=== PATIENT | male | born 1960 | race Caucasian/White ===

== ENCOUNTER 2018-05-11 02:00 | Day surgery (SDC) | payer BC ==
[~2018-05-11] VITALS: Ht 182.9 cm; Wt 79.8 kg
[~2018-05-11 02:00] MED LIST: ALB6.7R INH; CEPH500C24 PO; IBUP-56 PO; PRED-1 PO; SULF-198 PO
[2018-05-11] MEDS ORDERED: PROPOFOL EMUL(*) 10MG/ML 20 ML 40 ML ONE (07:20)
[2018-05-11 08:08] VITALS: BP 123/87
[2018-05-11] MEDS ORDERED: NORMOSOL R SOLN(*) 1000 ML BAG 1,000 ML IV PRN (08:30)
[2018-05-11] MEDS ORDERED: LIDOCAINE/SOD BICARB 8.4% SYR ID ONE (08:30)
[2018-05-11] MEDS ORDERED: GLYCOPYRROLATE 0.2MG/ML 1 ML INJ ONE (09:52)
[2018-05-11 10:01] VITALS: BP 102/67
--- NOTE | 2018-05-11 10:20 | NUR ---
RN INTO ROOM TO CHECK ON PT. NO CONCERNS. VSS. PT. ALERT AND ORIENTED. RESTING. OFFERED WATER.
[2018-05-11 10:22] VITALS: BP 105/73
[2018-05-11 10:38] VITALS: BP 99/73
--- NOTE | 2018-05-11 10:38 | NUR ---
RN INTO ROOM TO ASSESS PT. ASSESSMENT WNL. PT. COMFORTABLE. AWAKE, ALERT, AND ORIENTED. REQUESTING DISCHARGE.
[2018-05-11 10:41] VITALS: BP 118/75
--- NOTE | 2018-05-11 10:42 | NUR ---
ORTHOSTATIC VITALS WNL. ASYMPTOMATIC. WILL ALLOW PT. TO DRESS.
--- NOTE | 2018-05-11 10:45 | NUR ---
PT. DRESSED. DISCHARGE INSTRUCTIONS REVIEWED.
--- NOTE | 2018-05-11 10:50 | NUR ---
PT. DISCHARGED. TO DRIVE PT. HOME.
== END 2018-05-11 10:50 | disposition home or self-care (01) ==
LOC: OR 02:00
PROVIDERS: ATTEND Family Medicine
DX: Z12.11 Encounter for screening for malignant neoplasm of colon (principal)
CPT/HCPCS: 00812; 45378; J2704; J3490

== ENCOUNTER → 2018-06-30 | Outpatient (CLI) | payer BC ==
[~2018-06-30] MED LIST changes: +GADOBENATE 529MG/1ML 15ML VIAL IVP ONE
--- NOTE | 2018-06-30 10:03 | RADIOLOGY IMAGING REPORT ---
[place] [facility] [place] NAME: Yasir Cole : 1960 MR: [id number] V: [id number] EXAM DATE: ORDERING PHYSICIAN: JUWAN HOWELL TECHNOLOGIST: Location: [facility] [place] Patient: Yasir Cole : 1960 Visit/Account:[id number] Date of Sevice: 06/30/2018 Examination: MR brain without and with contrast Comparison: None History: Focal neurologic deficit, patent foramen ovale. Technique: Multiplane MR imaging was performed through the brain without and with contrast. 15 cc IV multihance was administered. Findings: Diffusion: None Ventricles: Normal Midline shift: None Extraxial fluid: None Midline craniocervical structures: Normal Parenchyma: A few tiny bilateral chronic cerebellar infarcts. Enhancement: No pathologic enhancement Vascular flow voids: Normal Orbits and paranasal sinuses: Small right maxillary sinus mucous retention cyst. Other: No significant additional finding. Impression: 1. A few tiny bilateral chronic cerebellar infarcts. 2. No acute intracranial abnormality. 3. Otherwise unremarkable brain MR without and with contrast. Report Dictated By: Antonio Pinon MD at 06/30/2018 9:54 AM Report E-Signed By: Antonio Pinon MD at 06/30/2018 9:59 AM WSN:[id number]
== END ==
LOC: MRI 02:17
PROVIDERS: ATTEND Psychiatry & Neurology Neurology
DX: R29.818 Other symptoms and signs involving the nervous system (principal); Q21.1 Atrial septal defect
CPT/HCPCS: 70553; A9577